=== PATIENT | male | born 1950 | race Caucasian/White ===

== ENCOUNTER → 2025-03-09 10:34 | Outpatient (REF) | payer MEDICARE, OTHER, SELFPAY | LOC: RAD 10:34 | PROVIDERS: ATTENDING PHYSICIAN Family Medicine | DX: M25.521 Pain in right elbow (principal) | CPT/HCPCS: 73080 ==

== ENCOUNTER 2025-03-16 23:15 | Observation (INO) | payer MEDICARE, OTHER, SELFPAY ==
[2025-03-16 19:23] VITALS: BP 153/105
[2025-03-16 19:37] LABS: Glucose - Point of Care 116 mg/dl (70-99)
[2025-03-16 19:42] LABS: % Basophils 0.2 % (0-2); % Eosinophils 0.1 % (0-6); % Immature Granulocytes 0.4 % (0-0.5); % Lymphocytes 18.9 % (20.5-51.1); % Monocytes 5.2 % (1.7-9.3); % Neutrophils 75.2 % (42.2-75.2); Absolute Lymphocytes 1.8 10^3/uL (1.2-3.4); Absolute Monocytes 0.5 10^3/uL (0.1-0.6); Absolute Neutrophils 7.3 10^3/uL (1.4-6.5); Hematocrit 43.5 % (39.0-52.0); Hemoglobin 15.3 g/dL (13.0-18.0); Mean Corp Hgb Conc. 35.2 g/dL (33.0-37.0); Mean Corpuscular Hgb 33.7 pg (27.0-31.0); Mean Corpuscular Volume 95.8 fL (80.0-94.0); Mean Platelet Volume 8.9 fL (7.4-10.4); Nucleated Red Blood Cells % 0 % (-); Platelet Count 335 10^3/uL (130-400); Red Blood Cell Count 4.54 10^6/uL (4.70-6.10); Red Cell Dist. Width 12.5 % (11.5-14.5); White Blood Cell Count 9.7 10^3/uL (4.8-10.8)
[2025-03-16 19:58] LABS: ALT (SGPT) 18 U/L (0-50); AST (SGOT) 22 U/L (17-59); Albumin 4.9 g/dl (3.5-5.0); Alkaline Phosphatase 61 U/L (38-126); Blood Urea Nitrogen 25 mg/dl (9-20); Calcium 9.2 mg/dl (8.4-10.2); Carbon Dioxide 26 mmol/L (22-30); Chloride 101 mmol/L (98-107); Glucose 128 mg/dl (70-99); Potassium 3.9 mmol/L (3.5-5.1); Sodium 140 mmol/L (135-145); Total Bilirubin 0.9 mg/dl (0.2-1.3); Total Protein 7.8 g/dl (6.3-8.2); eGFR 58.01
[2025-03-16 20:52] VITALS: BP 164/101
[2025-03-16 20:53] VITALS: BMI 24.6
[2025-03-16 21:00] VITALS: BP 139/93
--- NOTE | 2025-03-16 21:15 | ED.GENMED ---
History of Present Illness
General
Chief Complaint: Change in Mental Status
Source: patient and spouse ( states he buried 2 chickens and does not remember)
Exam Limitations: none
Time Seen by Provider: 03/16/25 20:37
Nursing documentation reviewed up to this point in time: agreed with
History of Present Illness
History of Present Illness:
74-year-old male presents the emergency department due to confusion, not being able to remember what he has done or remembering what is going on. Denies any speech difficulty. He states that he buried 2 chickens and cannot remember doing it.
Past History
Past History
ED Past Medical History: Cancer (Lymphoma) and HTN
ED Past Surgical History: Other (Left facial surgery for parotid gland)
Social History
Tobacco: Non-smoker
Personal:
Living: with family
Review of Systems
Review of Systems
Allergies reviewed?: Yes
All Other Systems: Not applicable
Constitutional: Reports no symptoms
EENT: Reports no symptoms
Respiratory: Reports no symptoms
Cardiac: Reports no symptoms
ABD/GI: Reports no symptoms
: Reports no symptoms
Musculoskeletal: Reports no symptoms
Skin: Reports no symptoms
Neurological: Reports other (Confusion)
Endocrine: Reports no symptoms
Hematologic/Lymphatic: Reports no symptoms
Psychiatric: Reports no symptoms
Phy Exam
Physical Exam
Physical Exam:
Physical Exam
General: no apparent distress, afebrile
Neck: supple. no meningeal signs. normal posterior pharynx
Heart: s1/s2 regular rate and rhythm, no murmur. equal radial
pulses.
HEENT: Pupils equal round reactive to light, EOMI
Lungs: no acute respiratory distress. clear bilaterally
Abdomen: normal bowel sounds. not tender. no CVAT
Neuro: alert and oriented. no focal neurological deficits cranial nerves II through XII intact, difficulty remembering recent events
Skin: no rash
Psychiatric: well kept. interactive and cooperative
Extremities: no edema. no calf tenderness. negative homans. good distal pulses
Scores
NIH Stroke Score
Level of Consciousness: 0 - Alert
LOC Questions: 0-Answers both correctly
LOC Commands: 0-Performs both correctly
Best Horizontal Gaze: 0-Normal
Visual Peng: 0=Normal, no visual loss
Facial Palsy: 0=Normal, symmetrical
Motor - Right Arm: 0=No drift 10 seconds
Motor - Left Arm: 0=No drift 10 seconds
Motor - Right Le-No drift 5 seconds
Motor - Left Le-No drift 5 seconds
Limb Ataxia: 0-Absent
Sensation: 0-Normal
Best Language: 0-No aphasia
Dysarthria: 0-Normal
Extinction and Inattention: 0-No abnormality
Total Score:: 0
Course
Orders/Labs/Results
Orders:
Orders
03/16/25 19:30
Electrocardiogram (*1) Urgent
Reason for Study: TIA/Stroke
EKG- Treatment ONCE
03/16/25 19:34
Complete Blood Count/With Diff Urgent
Comprehensive Metabolic Panel Urgent
03/16/25 19:[address] [CT Head W/o Iv Contrast] Urgent
Comment:
Reason For Exam: memory loss
Abnormal Lab Results
03/16/25 03/16/25
19:34 19:36
RBC 4.54 L 10^6/uL
(4.70-6.10)
MCV 95.8 H fL
(80.0-94.0)
MCH 33.7 H pg
(27.0-31.0)
Absolute Neuts (auto) 7.3 H 10^3/uL
(1.4-6.5)
Lymphocytes % 18.9 L %
(20.5-51.1)
BUN 25 H mg/dl
(9-20)
Glucose 128 H mg/dl
(70-99)
POC Glucose 116 H mg/dl
(70-99)
03/16/25 19:34
03/16/25 19:34
Vital Signs
Initial and Last Documented VS:
Initial Vital Signs
Temp Pulse Resp BP Pulse Ox
98 F 91 16 153/105 97
03/16/25 19:23 03/16/25 19:23 03/16/25 19:23 03/16/25 19:23 03/16/25 19:23
Last Documented Vital Signs
Temp Pulse Resp BP Pulse Ox
98 F 77 16 139/93 97
03/16/25 19:23 03/16/25 21:00 03/16/25 21:00 03/16/25 21:00 03/16/25 20:53
MDM/Problems Addressed
Differential Diagnosis Includes:
CVA, intracranial hemorrhage, hypertensive encephalopathy
MDM/Problems Addressed:
74-year-old male with possible TIA versus toxic metabolic encephalopathy versus hypertensive encephalopathy. No signs of intracranial hemorrhage. Admit to hospitalist for further evaluation.
Chronic conditions affecting care: HTN and Cancer
Acute Exacerbation and/or Progression of Chronic Illness: HTN
*Radiology
Radiology exam reviewed: radiology read reviewed (CT head no acute findings)
*Pulse Oximetry
Patient hypoxic: no
*EKG
Interpreted by ED Provider?: Yes
EKG Intrepretation Date: 03/16/25
EKG Intrepretation Time: 19:39
Interpretation: normal
Comparison EKG: changes noted
Heart Rate: 74
Rate: normal
Rhythm: sinus
[place]: normal axis
Interval: normal interval
QRS Pattern: normal QRS
Ischemia: no ischemia
*Court Officer Interpretation
Rate: normal
Interpretation: normal
Heart Rate: 72
Rhythm: sinus
*Critical Care Note
Total Time (30-74mins, 75-104mins- exclusive of procedures): Not Applicable
Data Reviewed
Further Testing Considered But Not Given:
lumbar puncture not indicated
Patient Management
Social determinants of health affecting care: Living situation and Strong social support
Discussion with other providers: Hospitalist
Escalation/DeEscalation of care consider admission/obs:
admit indicated
ED Attending Note
-
Portions of this chart may have been created with voice recognition software.� Occasional wrong word or��sound alike� substitutions may have occurred due to the inherent limitations of voice recognition software.
Discharge Plan
Departure
Patient Disposition: Admit
Date of Disposition: 03/16/25
Time of Disposition: 21:26
Admit to: Telemetry
Presentation/result/management discussed w/ accepting MD/DO: Hospitalist
Patient with high blood pressure during this ER visit?: Yes
Condition: Good
Discharge Problem:
Acute alteration in mental status
Prescriptions:
No Action
cyclobenzaprine 10 MG tablet
10 mg PO TIDPRN PRN (Reason: pain) Qty: 12 0RF
Referrals:
Anthony Kelley DO [Family Provider] -
Interventions
Interventions:
*Risk Screen - Suicide Last Done: 03/16/25 20:53
*Neglect/Abuse Screening Last Done: 03/16/25 20:53
*ED- Fall Risk Assessment Last Done: 03/16/25 20:53
*ED COVID-19 Vaccine History Last Done: 03/16/25 20:53
ED- Pulmonary Assessment Last Done: 03/16/25 20:53
ED- Neurological Assessment Last Done: 03/16/25 20:53
ED- Cardiac Assessment Last Done: 03/16/25 20:53
Discharge Date and Time
Print Language: ROMANIAN
--- NOTE | 2025-03-16 21:52 | EDRN ---
Med Reconcilation: Patient unsure of what meds he is taking at home
--- NOTE | 2025-03-16 21:59 | HPS.HSE ---
Family Physician
-
Family Physician: Anthony Kelley
Chief Complaint
-
Transient amnesia
History of Present Illness
74-year-old male presents to the ER with his with confusion. They recently just got a chicken coop and had about 15 chickens however about 2 weeks ago 3 of those chickens passed for which the patient could not recall today he even had buried
them. He also does not recall his pool being repaired the appointment according to his was set up over 2 weeks ago and there has been a bright orange mesh style fence around the area for which the patient does not remember however he states he
did move it aside to go and prune a morrow behind there but was confused as to why the mesh fence was there. He states about a week ago he was treated by his PCP for laryngitis/cough with a Medrol Dosepak he finished 2 days ago. He has never been on
prednisone before he denies any visual or auditory hallucinations and no aggression. He has never had an episode of memory impairment before is only aware of the impairment because his told him but he actually does not remember forgetting the
events. He is currently awake alert oriented x 3 is joking. 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 He denies headache, fever , chills, cough, shortness of breath, chest pain,
palpitations, abdominal pain, nausea, vomiting, diarrhea, urinary symptoms.
He was diagnosed with lymphoma in his chest in his spine in 2009 treated with chemo and is being followed by Dr. Nunez at [facility] he recently found lymph nodes enlarged in his right groin and chest in January. He has a follow-up scan in about 1 week
with his oncologist. Other past medical history includes hypertension, lymphoma Dx 2010 chest and spine now currently right groin and chest, left facial surgery for parotid gland, dilated aortic root 4.1 cm aortic root and ascending aorta 4.3 cm
Medical History
Past Medical History
Past Medical History: Reports Other
Additional Past Medical History:
Hypertension
lymphoma Dx 2009 chest and spine treated with chemoradiation, now currently right groin and chest
left facial surgery for parotid gland removal
dilated aortic root 4.1 cm aortic root and ascending aorta 4.3 cm
Past Surgical History: Reports Other
Additional Past Surgical History:
left facial surgery for parotid gland removal
Social History
Tobacco: Non-smoker
Alcohol: None
Drug: None
Personal:
Living: With Family
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
Family History
Family History: Not pertinent
Allergies / Home Medications
Allergies reflects when Allergies were last updated in [employer].
Home Medications with original date entered in [employer]
Allergy/Medication List:
Allergies
Allergy/AdvReac Type Severity Reaction Status Date / Time
No Known Drug Allergies Allergy Unknown Verified 06/13/18 12:20
Environmental Allergy congestion Uncoded 06/13/18 12:20
Home Medications
cyclobenzaprine 10 mg tablet 10 mg PO TIDPRN PRN pain #12 tabs 06/13/18
atenolol 12.5 mg PO DAILY 03/16/25
Review of Systems
-
History Source: Patient and Family ( Rashida at bedside)
A 12 point ROS was completed and negative except as noted: Yes
Constitutional: Reports Other (Confusion, amnesia); Denies Fever or Chills
EENT: Denies Sore Throat or Runny Nose
Respiratory: Denies Cough, Hemoptysis, Trouble Breathing or Other
Cardiac: Denies Chest Pain, Diaphoresis, Palpitations or Syncope
Abdomen/GI: Denies Abdominal Pain, Nausea, Vomiting, Diarrhea, Constipated, Bloody Stools or Black Stools
: Denies Dysuria, Frequency, Flank Pain, Incontinence, Difficulty Voiding or Urgency
Musculoskeletal: Denies Joint Pain, Joint Swelling, Muscle Stiffness or Edema
Skin: Denies Itching or Rash
Neurological: Denies Dizzy, Headache or Weakness
Endocrine: Reports No Symptoms
Hematologic/Lymphatic: Reports No Symptoms
Psych: Reports Calm
Physical Exam
Vital Signs
Vital Signs
Temp Pulse Resp BP Pulse Ox
98 F 71 14 139/93 98
03/16/25 19:23 03/16/25 21:45 03/16/25 21:45 03/16/25 21:00 03/16/25 21:45
Physical Exam
General: Comfortable, Conversant and Other (Patient aware of his forgetfulness of chickens dying being buried last week and forgetting he was having his pool resurfaced); No Pain, Fever or Chills
HEENT: NormoCephalic, Anicteric, Moist mucous membranes, PERRLA, [place] Conjunctivae and No Ptosis
Respiratory: Clear; No Wheezes, Rales or Rhonchi
Cardiac: S1/S2 and Regular Rhythm; No Murmur, Rub, Gallop or Peripheral Edema
Breast: Deferred by me
GI: Soft, Non Tender, Non Distended, Normal Bowel Sounds and No Hepatosplenomegaly
Rectal: Deferred by Provider
Genito-urinary: Deferred by me
Musculoskeletal: No Clubbing, No Cyanosis and No Edema
Skin: Warm and Dry; No Rash
Neuro: AO x 3 (Name, [place]/Brian Griffin, year, , history except recent pool resurfacing and baby chickens that ), No Motor Deficits, Nonfocal/grossly intact, Cranial Nerves Intact and No Sensory Deficits; No Slurred Speech, Facial Droop,
Tremors or Sedated
Psych: Calm
Laboratory Results
-
03/16/25 19:34
03/16/25 19:34
Laboratory Results
Total Bilirubin 0.9 mg/dl (0.2-1.3) 03/16/25 19:34
AST 22 U/L (17-59) 03/16/25 19:34
ALT 18 U/L (0-50) 03/16/25 19:34
Alkaline Phosphatase 61 U/L (38-126) 03/16/25 19:34
Data Reviewed
-
CT Scan: Report Reviewed by me
Lab Data: Labs Reviewed by me
Impression/Plan
-
Impression/plan:
Observation telemetry
#Transient amnesia concern for TIA versus hypertensive encephalopathy
Symptoms of the amnesia today however does not remember a fence being installed for a pool resurfacing 2 weeks ago
- Check UDS
- Neurochecks every 4 hours
- MRI brain
- Aspirin 325 mg now then 81 mg daily
- Check lipid profile
- Consult neurology
- PT/OT/case management consult
CT head: No acute intracranial abnormality, moderate subcortical deep and periventricular white matter low-attenuation compatible with changes of chronic small vessel ischemic disease
EKG: NSR 74 bpm, QTc 401 MS, Septal infarct compared to 2008 leads in V1 V2
#Hypertension
BP 164/101> 155/95 self corrected
-Continue atenolol 12.5 mg daily he is unsure if he took today
�Follows with [facility]
2D echo 02/03/2017: EF 55-60%, normal LV S LVSF, dilated aortic root 41 mm (4.1cm)and ascending aorta 43 mm(4.3cm) no valvular heart disease
# Lymphoma Dx 2010 chest and spine now currently right groin and chest treated with chemo/radiation
- Follows with Dr. Obregon at [facility] for CT chest and abdomen in about 1 week
-Check LDH level
# Hx left facial surgery for parotid gland
# HX dilated aortic root 4.1 cm aortic root and ascending aorta 4.3 cm
DVT prophylaxis
SCDs
Full code
[2025-03-16 22:00] VITALS: BP 155/95
--- NOTE | 2025-03-16 22:10 | W.PN.UPDATE ---
Update Note
Progress Note Update
I could not get any information from the patient due to AMS
Information gathered by chart review and speaking with the ER staff.
This note serves as an addendum to the H&P by english tutor BLAKE
Debo HUGHES
HPI
74M HX lymphoma, hypertension, left facial surgery for parotid gland seen at ER for acute confusional state
- accompanied by s for evaluation of confusion.
- per , he buried two chickens and does not remember
ROS
denies fever, chills, cough, shortness of breath, chest pain, palpitations, abdominal pain, nausea, vomiting, diarrhea, urinary symptoms.
VS
03/16/25
19:23 03/16/25
20:52 03/16/25
21:00
Temp 98 F
Pulse 91
Resp Rate 16
Blood pressure 153/105 164/101 139/93
SaO2 97
Oxygen Mode of Delivery Room air
PE
Gen: Not toxic,
HEENT: anicteric
Neck: supple
Lungs: CTA
Cor: RRR S1 S2
Abdomen: sodt benign
WIRE FRAME DIPPER: AA,
MS:
Psych:
Labs
03/16/25 03/16/25
19:34 19:36
WBC 9.7
Hgb 15.3
Plt Count 335
BUN 25 H
Creatinine 1.3
eGFR 58.01
POC Glucose 116 H
Pending UDS
EKG
NORMAL SINUS RHYTHM
POSSIBLE LEFT ATRIAL ENLARGEMENT
SEPTAL INFARCT , AGE UNDETERMINED
ABNORMAL ECG
WHEN COMPARED WITH ECG OF 27-JUN-2009 07:28,
SEPTAL INFARCT IS NOW PRESENT
CT Head W/o Iv Contrast
- No acute intracranial abnormality noted.
NO PRIOR hospitalist admission:
ASSESSMENT & PLAN
AMS with stable wakefulness
Recent short term memory impairment:
DDX; Transient amnesia due to TIA >> encephalopathy ( TME )
Elevated SBP with prior HX HTN
- agree with ASA
- IV Hydralazine PRN for SBP > 165, DBP > 110
- Brain MRI in AM
- A1C, Lipids profile
- Neuro consult
[facility] HTN HX but no Meds listed
- add IV Hydralazine PRN for SBP > 165, DBP > 110
HX Lymphoma of chest
Recent recurrence of Rt inguinal LAD
- f/u at [facility]
DVT Px: SCD
Full code
OBS TLM
[2025-03-16] MEDS: LOW STRENGTH ASPIRIN 324 MG PO (22:21)
[2025-03-16 23:46] LABS: Amphetamines Negative (Negative); Barbiturates Negative (Negative); Benzodiazepines Negative (Negative); Buprenorphine Negative (Negative); Cocaine Negative (Negative); Marijuana Negative (Negative); Methadone Negative (Negative); Methamphetamines Negative (Negative); Opiates Negative (Negative); Phencyclidine Negative (Negative); Tricyclic Antidepressants Negative (Negative)
[2025-03-17] VITALS (7 sets, daily range): BP systolic 126–161; BP diastolic 75–114; PULSE 68–69; O2SAT 97; BMI 23.7
--- NOTE | 2025-03-17 01:00 | PTCARENOTE ---
Received patient from ED via stretcher. Patient ambulated from stretcher to bed independently. AAOx3, no current complaints of pain. Oriented patient to room and placed call dalton within reach.
[2025-03-17 07:11] LABS: % Basophils 0.4 % (0-2); % Eosinophils 0.7 % (0-6); % Immature Granulocytes 0.2 % (0-0.5); % Lymphocytes 20.3 % (20.5-51.1); % Monocytes 8.1 % (1.7-9.3); % Neutrophils 70.3 % (42.2-75.2); Absolute Eosinophils 0.1 10^3/uL (0-0.7); Absolute Lymphocytes 1.9 10^3/uL (1.2-3.4); Absolute Monocytes 0.7 10^3/uL (0.1-0.6); Absolute Neutrophils 6.5 10^3/uL (1.4-6.5); Hematocrit 40.2 % (39.0-52.0); Mean Corp Hgb Conc. 34.8 g/dL (33.0-37.0); Mean Corpuscular Hgb 33.1 pg (27.0-31.0); Mean Platelet Volume 9.3 fL (7.4-10.4); Nucleated Red Blood Cells % 0 % (-); Platelet Count 298 10^3/uL (130-400); Red Blood Cell Count 4.23 10^6/uL (4.70-6.10); Red Cell Dist. Width 12.3 % (11.5-14.5); White Blood Cell Count 9.2 10^3/uL (4.8-10.8)
[2025-03-17] MEDS: TENORMIN 12.5 MG PO (08:02)
[2025-03-17] MEDS: LOW STRENGTH ASPIRIN 81 MG PO (08:03)
[2025-03-17 08:12] LABS: ALT (SGPT) 14 U/L (0-50); AST (SGOT) 22 U/L (17-59); Albumin 3.7 g/dl (3.5-5.0); Alkaline Phosphatase 52 U/L (38-126); Blood Urea Nitrogen 25 mg/dl (9-20); Calcium 8.6 mg/dl (8.4-10.2); Carbon Dioxide 29 mmol/L (22-30); Chloride 104 mmol/L (98-107); Estimated Creatinine Clearance 53 ml/min; Glucose 88 mg/dl (70-99); HDL Cholesterol 75 mg/dl; LDH 250 U/L (120-246); LDL Cholesterol, Calculated 157 mg/dl; Magnesium 2.1 mg/dl (1.6-2.3); Potassium 4.3 mmol/L (3.5-5.1); Sodium 137 mmol/L (135-145); Total Cholesterol 244 mg/dl (50-199); Total Protein 6.2 g/dl (6.3-8.2); Triglyceride 62 mg/dl (10-149); Very Low Density Lipoprotein 12 mg/dl (0-30); eGFR 58.01
--- NOTE | 2025-03-17 08:49 | CON.NEURO ---
Consultation
Order
Date of Consultation: 03/17/25
Requesting Provider: Debo Coe CRNP
Reason for Consult: Transient amnesia
Neurology Consultation Note.
HPI: This is an 74-year-old RH man who presented to [facility] on March 16, 2025 with progressive symptoms.
The patient reports experiencing times where he would 'space out for a minute or 2,' noting that it wasn't dizziness but rather needing 'an extra second to think and process information.' This occurred a couple of times, prompting his oncologist to
request CT scan of the head scheduled for for March 22.
The patient describes a specific incident where he didn't remember burying two chickens and doing something with a pool. He now recalls burying chickens in a box and planting mack on top. Mr. Saclido denies experiencing headaches, changes in
vision or strength, or a history of seizures. He manages his medications independently.
Mr. Salcido has recently completed treatment for follicular lymphoma at [facility] in [place]. His treatment history includes four cycles of rituximab from 2009 to 2024, with the most recent treatment involving a new drug that started either at the
end of December or in January 2025. The change in medication was due to decreased longevity of coverage with rituximab, which previously provided about two years of remission before recurrence.
ER VS: 153/105, 95, afebrile
EKG: NSR, QTc Int : 401 ms
PDMP:none
Labs: Glucose�128, MCV�95.8, normal WBCs, platelets, sodium, calcium, magnesium, LDL�157.
CT head wo contrast�unremarkable
PMH: follicular non-Hodgkin's lymphoma(s/p RT/chemo), HTN, DLP, Cervical DJD, LS radiculopathy,thoracic ascending aortic aneurysm
PSH: Zenker's diverticulum repair, L parotid mass extraction
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
FH: no family history of neuro degenerative disease
All:NKDA
ROS: Constitutional: Negative. Negative for chills, fever and unexpected weight change.
HENT: Reduced hearing on the left, tinnitus
Eyes: Negative. Negative for photophobia, pain and visual disturbance.
Respiratory: Negative for cough, choking and shortness of breath.
Cardiovascular: Negative for chest pain, palpitations and leg swelling.
Gastrointestinal: Negative for abdominal pain and vomiting.
Endocrine: Negative. Negative for cold intolerance.
Genitourinary: Negative for dysuria, flank pain and urgency.
Musculoskeletal: Negative for back pain, gait problem, neck pain and neck stiffness.
Skin: Negative for rash.
Allergic/Immunologic: Negative. Negative for immunocompromised state.
Neurological: Chronic tingling in the right lower leg, transient cognitive symptoms
Psychiatric/Behavioral: Negative for behavioral problems, confusion and hallucinations.
General: Well developed. In no acute distress.
Cardio: Regular rate and rhythm without murmur. Extremities are without cyanosis or edema.
Neuro:
Mental Status: Alert, oriented to person, place, and date. Mild word finding difficulties. Normal attention and recall. Good fund of knowledge. Follows complex requests across the midline. Comprehension, naming, and repetition intact.
Cranial Nerves: Pupils are equally round and reactive to light. EOMs full. Visual pham full to confrontation. No ptosis. No nystagmus. V1-V3 intact to light touch and pinprick bilaterally, symmetric. Face symmetric. Normal hearing AU. The
palate elevated well. SCMs and traps 5/5. Tongue midline. No dysarthria. Min dysphonia
Motor: Normal bulk and tone. No pronator or arm drift. Strength 5/5 throughout. No clonus.
Reflexes: 2+ throughout the upper extremities and knees. Plantar responses flexor bilaterally. Negative grasp bilaterally
Sensory: Reduced vibration at the right toe and ankle
Coordination: No dysmetria or tremor.
Gait: deferred
Assessment and Plan:
I. Transient encephalopathy. Differential diagnosis includes vascular, versus toxic versus septic versus neurodegenerative.
II. History of follicular non-Hodgkin's lymphoma
III.
- Check vitamin B12, TFTs, urine tox
- Brain MRI without jayshree
- Will consider consider routine EEG based on the poor result
- Will follow
I personally reviewed all radiology and labs along with past medical records pertinent to current medical problems. Total time spent in patient care is 60 minutes.
Thank you for allowing us to participate in the care of this patient. We will continue to follow. Please do not hesitate to contact us with any questions or concerns.
Subjective/Objective
Subjective Data
Date of Service: March 17, 2025
Objective Data
Vital Signs
Temp Pulse Resp BP Pulse Ox
36.8 C 72 18 137/86 99
03/17/25 08:28 03/17/25 08:28 03/17/25 08:28 03/17/25 08:28 03/17/25 08:28
Lab Results
03/17/25 06:05
03/17/25 06:05
Sodium 137 mmol/L (135-145) 03/17/25 06:05
Potassium 4.3 mmol/L (3.5-5.1) 03/17/25 06:05
BUN 25 mg/dl (9-20) H 03/17/25 06:05
Glucose 88 mg/dl (70-99) 03/17/25 06:05
Calcium 8.6 mg/dl (8.4-10.2) 03/17/25 06:05
LDL Cholesterol, Calc 157 mg/dl 03/17/25 06:05
Ur Buprenorphine Negative (Negative) 03/16/25 23:07
Patient Allergies
No Known Drug Allergies Allergy (Verified 06/13/18 12:20)
Unknown
Environmental Allergy (Uncoded 06/13/18 12:20)
congestion
Medications
-
Active Medications
Generic Name Dose Route Start Last Admin
Trade Name Freq PRN Reason Stop Dose Admin
Acetaminophen 650 mg 03/17/25 00:39
Acetaminophen 325 Mg Tablet PO 04/14/25 00:38
Q4HPRN PRN
mild pain/REYNOLDS/temp> 100.4F
Aspirin 81 mg 03/17/25 08:00 03/17/25 08:03
Aspirin 81 Mg Chewable Tablet PO 04/14/25 07:59 81 mg
DAILY DOUGLAS Administration
Atenolol 12.5 mg 03/17/25 08:00 03/17/25 08:02
Atenolol 25 Mg Tablet PO 04/14/25 07:59 12.5 mg
DAILY DOUGLAS Administration
Cyclobenzaprine HCl 10 mg 03/17/25 00:39
Cyclobenzaprine 10 Mg Tablet PO 04/14/25 00:38
TIDPRN PRN
pain
Hydralazine HCl 10 mg 03/17/25 01:08
Hydralazine 20 Mg/Ml Vial IV 04/14/25 00:38
Q6HPRN PRN
sbp>160
Sodium Chloride 0 flush 03/16/25 23:00
Sodium Chloride 0.9% (Flush) Syringe IV 04/13/25 22:59
PER PROTOCOL DOUGLAS
Home Medications
�Medication �Instructions �Recorded
cyclobenzaprine 10 mg tablet 10 mg PO TIDPRN PRN pain #12 tabs 06/13/18
atenolol 12.5 mg PO DAILY 03/16/25
Vital Signs and Labs
-
Vital Signs and Labs:
Vital Signs
Temp Pulse Resp BP Pulse Ox
36.8 C 72 18 137/86 99
03/17/25 08:28 03/17/25 08:28 03/17/25 08:28 03/17/25 08:28 03/17/25 08:28
Lab Results
03/17/25 06:05
03/17/25 06:05
Sodium 137 mmol/L (135-145) 03/17/25 06:05
Potassium 4.3 mmol/L (3.5-5.1) 03/17/25 06:05
BUN 25 mg/dl (9-20) H 03/17/25 06:05
Glucose 88 mg/dl (70-99) 03/17/25 06:05
Calcium 8.6 mg/dl (8.4-10.2) 03/17/25 06:05
LDL Cholesterol, Calc 157 mg/dl 03/17/25 06:05
Ur Buprenorphine Negative (Negative) 03/16/25 23:07
Medications
-
Medications:
Generic Name Dose Route Start Last Admin
Trade Name Freq PRN Reason Stop Dose Admin
Acetaminophen 650 mg 03/17/25 00:39
Acetaminophen 325 Mg Tablet PO 04/14/25 00:38
Q4HPRN PRN
mild pain/REYNOLDS/temp> 100.4F
Aspirin 81 mg 03/17/25 08:00 03/17/25 08:03
Aspirin 81 Mg Chewable Tablet PO 04/14/25 07:59 81 mg
DAILY DOUGLAS Administration
Atenolol 12.5 mg 03/17/25 08:00 03/17/25 08:02
Atenolol 25 Mg Tablet PO 04/14/25 07:59 12.5 mg
DAILY DOUGLAS Administration
Cyclobenzaprine HCl 10 mg 03/17/25 00:39
Cyclobenzaprine 10 Mg Tablet PO 04/14/25 00:38
TIDPRN PRN
pain
Hydralazine HCl 10 mg 03/17/25 01:08
Hydralazine 20 Mg/Ml Vial IV 04/14/25 00:38
Q6HPRN PRN
sbp>160
Sodium Chloride 0 flush 03/16/25 23:00
Sodium Chloride 0.9% (Flush) Syringe IV 04/13/25 22:59
PER PROTOCOL DOUGLAS
Home Medications
-
Home Medications
cyclobenzaprine 10 mg tablet 10 mg PO TIDPRN PRN pain #12 tabs 06/13/18
atenolol 12.5 mg PO DAILY 03/16/25
--- NOTE | 2025-03-17 11:08 | W.PN.HOSP.TC ---
Today's Communication/Plan
-
additional metabolic workup, UA, and MRI
if unremarkable testing, consider DC this evening
await neuro recs
Assessment / Plan
Assessment / Plan
Assessment:
Transient confusion/amnesia
- TIA/CVA vs HTN encephalopathy vs steroid induced vs other
- check UA. no infectious signs
- UDS negative
- CT head negative. MRI pending
- Neuro eval
- continue ASA
- LDL 157
- neuro-checks/NIH continue
- PT/OT
Essential Hypertension
- continue Atenolol
Hx of Lymphoma
- follows with Dr. Nunez - [facility]
- CT head planned but here is negative - will give patient a report
Hx left facial surgery for parotid gland
Hx dilated aortic root 4.1 cm aortic root and ascending aorta 4.3 cm
DVT ppx: SCDs
Code: Full
Anticipated Discharge: Within 24 hours
Subjective/Interval History
-
Date of Service: March 17, 2025
resting comfortably, no complaints at present
Objective Data
-
Labs:
Laboratory Results
03/17/25
06:05
WBC 9.2
Hgb 14.0
Hct 40.2
Plt Count 298
Sodium 137
Potassium 4.3
Chloride 104
Carbon Dioxide 29
BUN 25 H
Creatinine 1.3
Glucose 88
Calcium 8.6
Total Bilirubin 1.0
AST 22
ALT 14
Alkaline Phosphatase 52
Vital Signs:
Vital Signs
Temp Pulse Resp BP Pulse Ox
98.3 F 72 18 137/86 99
03/17/25 08:28 03/17/25 08:28 03/17/25 08:28 03/17/25 08:28 03/17/25 08:28
Physical Exam
-
General: No Apparent Distress
HEENT: Normocephalic and Atraumatic
Respiratory: Negative Wheezes
Cardiac: Regular Rhythm and S1/S2
GI: Soft and Nontender
Genito-urinary: No Costovertebral Tender
Neuro: AO x 3
Psych: Calm
Data Reviewed
-
Total Time Spent with Patient (in minutes): 42
Labs: Labs Reviewed by me
[2025-03-17 11:29] LABS: Glycohemoglobin (HgbA1c) 5.4 % (4.0-5.6)
[2025-03-17] MEDS: PLAVIX 75 MG PO (12:07)
[2025-03-17 13:18] LABS: TSH Reflex To Free T4 0.62 uIU/ml (0.47-4.68)
[2025-03-17 13:54] LABS: Folate 8.7 ng/ml (2.76-20); Vitamin B12 568 pg/ml (239-931)
[2025-03-17 15:21] LABS: Urine Albumin 1+ (Neg - Trace); Urine Bilirubin Negative (Negative); Urine Character Clear (Clear); Urine Color Yellow; Urine Glucose Negative (Negative); Urine Ketone Negative (Negative); Urine Leukocyte Negative (Negative); Urine Nitrite Negative (Negative); Urine Occult Blood Negative (Negative); Urine Specific Gravity 1.015 (<1.030); Urine Urobilinogen Negative (Neg - 1+); Urine pH 6.5 (5.0-9.0)
[2025-03-17 15:30] LABS: Urine Red Blood Cell 0-2 /HPF (0-2); Urine Squamous Cell 0-2 /LPF (Few)
--- NOTE | 2025-03-17 15:44 | CM ---
Alert awake oriented patient who lives with his SO Rashida who lives in a 2 story home with 2 step to enter and 15 steps to bed and bathroom. He is independent in driving and in all activities of daily living.He was offered VN he declined need.Rashida
will drive him home. He agrees with dc today.
Observation letter given signed on chart
No VN hx / No SNF history
Pharmacy [facility]
PCP DR Kelley
PLAN Home Declined VN
--- NOTE | 2025-03-18 11:59 | W.DS.TRANS ---
DC Summary - [employer]
-
Discharge Instructions:
Discharge Diagnosis/Procedures steroid induced delirium
Diet Regular
Activity As tolerated
Bathing Restrictions None
Instructions:
Stand-Alone Forms:
Changes to Home Medications: No
Discharge Medications:
DC Medications w/original date entered in [facility]
cyclobenzaprine 10 mg tablet 10 mg PO TIDPRN PRN pain #12 tabs 06/13/18
atenolol 12.5 mg PO DAILY 03/16/25
aspirin 81 mg chewable tablet 81 mg PO DAILY #100 tabs 03/17/25
Home Medication Changes
Pending Results: No
Total time spent discharging patient (in min): 41
== END 2025-03-17 16:00 | disposition home or self-care (01) ==
LOC: 4 EAST ACU 23:15
PROVIDERS: Clinical Nurse Specialist Family Health; Student in an Organized Health Care Education/Training Program; ADMITTING PHYSICIAN Internal Medicine; ATTENDING PHYSICIAN Internal Medicine; CONSULT PHYSICIAN Psychiatry & Neurology Neurology; EMERGENCY PHYSICIAN Emergency Medicine; FAMILY PHYSICIAN Family Medicine
DX: R41.3 Other amnesia (principal); G93.40 Encephalopathy, unspecified; I10 Essential (primary) hypertension; I77.810 Thoracic aortic ectasia; M54.17 Radiculopathy, lumbosacral region; M47.812 Spondylosis without myelopathy or radiculopathy, cervical region; R41.0 Disorientation, unspecified; T38.0X5A Adverse effect of glucocorticoids and synthetic analogues, initial encounter; Y92.9 Unspecified place or not applicable; R94.31 Abnormal electrocardiogram [ECG] [EKG]; Z85.72 Personal history of non-Hodgkin lymphomas; Z79.899 Other long term (current) drug therapy; Z92.21 Personal history of antineoplastic chemotherapy; Z92.3 Personal history of irradiation
CPT/HCPCS: 70450; 70551; 80053; 80061; 80306; 81003; 81015; 82607; 82746; 82962; 83036; 83615; 83735; 84425; 84443; 85025; 93005; 97116; 97129; 97161; 97165; 99285; G0378